=== PATIENT | male | born 1960 | race Caucasian/White ===

== ENCOUNTER 2023-12-21 15:03 | Emergency (ER) | payer BC, SELFPAY ==
--- NOTE | ~2023-12-21 | XR_ITS ---
EXAMINATION: XR LUMBOSACRAL SPINE CLINICAL INFORMATION: Fall off a ladder approximately 4 feet high COMPARISON: None available. TECHNIQUE: Three views of the lumbosacral spine. FINDINGS: The vertebral bodies and posterior elements are normal. The disc spaces are preserved and the vertebral alignment is normal. The paraspinal soft tissues are normal. XR/XR lumbar spine 2-3V IMPRESSION: Unremarkable lumbar spine examination. Electronically signed by: Cody Sun MD 12/21/2023 07:45 PM EDT
--- NOTE | ~2023-12-21 | XR_ITS ---
EXAMINATION: XR ANKLE AND FOOT, LEFT CLINICAL INFORMATION: Fell off 4 from ladder today and landed on foot with swelling laterally COMPARISON: None available. TECHNIQUE: AP, lateral, and mortise views of the left ankle. 3 views of the left foot. FINDINGS: There is marked bilateral soft tissue swelling. The ankle mortise appears stable. There is a comminuted fracture extending through the body of the calcaneus with minimal displacement of fracture fragments. No other definite fractures are seen. An ankle joint effusion is not present. XR/XR ankle LT min 3V IMPRESSION: Comminuted calcaneal fracture. Electronically signed by: Clem Bennett MD 12/21/2023 05:33 PM EDT RP
--- NOTE | ~2023-12-21 | XR_ITS ---
EXAMINATION: XR ANKLE AND FOOT, LEFT CLINICAL INFORMATION: Fell off 4 from ladder today and landed on foot with swelling laterally COMPARISON: None available. TECHNIQUE: AP, lateral, and mortise views of the left ankle. 3 views of the left foot. FINDINGS: There is marked bilateral soft tissue swelling. The ankle mortise appears stable. There is a comminuted fracture extending through the body of the calcaneus with minimal displacement of fracture fragments. No other definite fractures are seen. An ankle joint effusion is not present. XR/XR foot LT min 3V IMPRESSION: Comminuted calcaneal fracture. Electronically signed by: Clem Bennett MD 12/21/2023 05:33 PM EDT RP
--- NOTE | 2023-12-21 15:24 | ED.LOWEXIN ---
HPI - Extremity Injury (Lower) General Chief Complaint: Extremity Injury, Lower Stated Complaint: l ankle inj Time Seen by Provider: 12/21/23 16:39 Source: patient Mode of arrival: ambulatory Limitations: no limitations History of Present Illness ED Provider: JUNIOR SCOTT PA-C HPI Narrative: 63 year old male with no significant pmhx presents tot he ED today for evaluation of left foot/ankle pain after losing his balance and falling approximately 4-5 feet off of the ladder, landing on his left heel NUCLEAR MEDICAL TECH. He has been unable to bear weight since. He denies head strike or LOC. Denies neck or back pain, hip pain, or knee pain. Denies numbness/tingling/weakness of the LLE. Reports taking 3 Tylenol NUCLEAR MEDICAL TECH with minimal improvement in pain. Related Data Previous Rx's ?Medication ?Instructions ?Recorded oxycodone 5 mg tablet 5 mg PO Q8H PRN pain (scale score 12/21/23 4-6) #10 tabs prednisone 20 mg tablet 40 mg (2 x 20 mg) PO DAILY 5 days 12/21/23 #10 tabs Allergies Allergy/AdvReac Type Severity Reaction Status Date / Time No Known Allergies Allergy Verified 12/21/23 15:26 Review of Systems Review of Systems: Constitutional: No fever, chills, fatigue, night sweats, weight changes ENT/Mouth: No ear pain, hearing loss, nasal congestion, sinus pain, rhinorrhea, sore throat Eyes: No eye pain, swelling, redness, vision changes, discharge Cardio: No chest pain, palpitations, AVALOS, orthopnea, peripheral edema Pulm: No SOB, cough, sputum, wheezing, dyspnea, hemoptysis GI: No nausea, vomiting, hematemesis, abdominal pain, diarrhea, constipation, hematochezia, melena : No irregular bleeding, dysuria, frequency, urgency, hesitancy, hematuria, flank pain, urinary flow changes, urinary incontinence or retention MSK: No back pain, neck pain, joint pain, myalgias, +left ankle/foot pain Skin: No lesions, rashes Neuro: No weakness, numbness, paresthesias, LOC, dizziness, headache Psych: No anxiety/panic, depression, SI/HI, AH/VH All other systems reviewed and are negative. [facility] Past Medical History Attestation statement: The following information was validated with the patient. Source: old records reviewed and nursing notes reviewed Social History Social History Advance Directives: No Advance Directives Information Provided: No Do you have a plan to hurt others: No Plan Physical Exam Vital Signs: Vital Signs: Last Vital Signs Temp 98.4 F 12/21/23 15:26 Pulse 84 12/21/23 15:26 Resp 16 12/21/23 15:26 BP 155/94 H 12/21/23 15:26 Pulse Ox 99 12/21/23 15:26 O2 Del Method Room Air 12/21/23 15:26 BMI result Body Mass Index 25.8 patient hypertensive, vitals otherwise wnl General: Well appearing, in no acute distress. Skin: Warm, dry, intact. No rashes or lesions. Head: Normocephalic, atraumatic. EENT: Hearing is intact b/l. Conjunctiva clear. PERRLA. EOM intact. Moist mucous membranes.? Neck: Supple without LAD Cardiac: Chest wall symmetric. RRR. Lungs: Normal respiratory effort without accessory muscle use. Back: No midline spinous or paraspinal tenderness. No step off deformity. Ext: +diffuse swelling noted to left ankle. limited ROM d/t swelling/ pain. cap refil 3 seconds. 2+ PT pulse. unable to bear weight on left foot. diffusely ttp. no deformity, skin changes or tenderness noted to left knee or hip. FROM intact to both. Neuro: AOx3. Normal speech. Strength 5/5 intact throughout. No saddle anesthesia. Sensation intact to light touch. NV intact distally. Psych: Appropriate mood and affect. Responds appropriately to questions. Course Course Course Narrative: This is a Rapid Medical Examination (RME) performed by Shania Vitale PA-C in triage. Full HPI, ROS, assessment and treatment plan per primary provider in the Main ED. 63 y/o male with history of HTN presents the ER for evaluation of left ankle pain after he fell 4 ft off of a ladder about an hour ago. He denies any head strike or loss of conscious. He is not on anticoagulation. He states having a ladder, both fell over, landing on his left foot. Unable to bear weight since. Significant swelling on exam, 1+ PD pulse. Plan: X-rays of the left ankle and foot Reevaluation(s) Reevaluation #1: 1820 -- X-ray left foot/ankle shows marked bilateral soft tissue swelling with comminuted fracture extending through the body of the calcaneus with minimal displacement of fracture fragments. No evidence of other fracture. I spoke with orthopedic PAManolo, who recommends posterior short-leg, nonweightbearing and crutches with close outpatient follow-up. Patient placed in posterior short-leg splint. Tolerated well. Cap refill 3 seconds post placement. sensation intact. he states the splint feels comfortable. he was medicated with IV Dilaudid in ED with improvement in pain. Advised to take Tylenol and Motrin at home. Will send oxycodone for breakthrough pain. Will also send prednisone for swelling. educated on RICE therapy. referral to ortho provided. 1844 -- Patient stating he would like to leave without obtaining his lumbar xray results. He does not wish to stay here and would like to go home. Given absence of midline spinous tenderness or step off deformity, I have low suspicion of lumbar fracture or other pathology. i informed that he would be leaving AMA without his xray results and he expresses understanding and is agreeable to signing AMA forms. Patient has remained stable throughout ED visit today. Discussed worrisome signs and symptoms and when to return to the ED. All questions answered at this time. his friend will be driving him home today. Medications Administered Discontinued Medications Generic Name Dose Route Start Last Admin Trade Name Freq PRN Reason Stop Dose Admin Hydromorphone HCl 0.5 mg 12/21/23 17:00 12/21/23 17:08 Hydromorphone Hcl 0.5 Mg/0.5 Ml Syringe IVPUSH 12/21/23 17:01 0.5 mg ONCE ONE Administration Protocol Medical Decision Making Medical Decision Making MDM Narrative: 63 year old male with no significant pmhx presents tot he ED today for evaluation of left foot/ankle pain after losing his balance and falling approximately 4-5 feet off of the ladder, landing on his left heel NUCLEAR MEDICAL TECH. Patient hypertensive, vitals otherwise WNL. He is nontoxic-appearing and in no acute distress. On exam of left foot/ankle, there is diffuse swelling noted to left ankle. limited ROM d/t swelling/ pain. cap refil 3 seconds. 2+ PT pulse. unable to bear weight on left foot. diffusely ttp. no deformity, skin changes or tenderness noted to left knee or hip. FROM intact to both. Strength 5/5 intact throughout. No saddle anesthesia. Sensation intact to light touch. NV intact distally. No midline spinous tenderness or step-off deformity. Differential diagnosis includes fracture, dislocation, contusion. Physical exam is not consistent with tibial plateau fracture or other knee fracture. There is no midline spinous tenderness to suggest vertebral fracture however will obtain lumbar x-ray to rule out. Unlikely neurovascular compromise, threat to limb, compartment syndrome, cord compression, cauda equina. Plan for xrays, pain control, re-evaluation. Differential Diagnosis Differential Diagnoses: The differential diagnosis associated with the presentation includes as above. Admission/Observation not indicated. Consult Healthcare Provider Management of the patient was discussed with: Band Top Maker (Ortho [facility] Lozano ) Independent Interpretation I performed an independent interpretation of an: Plain X-Ray Interpretation: XR left foot/ ankle showing calcaneal fracture, agree with radiologist's interpretation. XR lumbar spine Radiology Impression Discussion of test interpretation with radiology: I have reviewed the radiologist's reading. Radiologist Impression: EXAMINATION: XR ANKLE AND FOOT, LEFT CLINICAL INFORMATION: Fell off 4 from ladder today and landed on foot with swelling laterally COMPARISON: None available. TECHNIQUE: AP, lateral, and mortise views of the left ankle. 3 views of the left foot. FINDINGS: There is marked bilateral soft tissue swelling. The ankle mortise appears stable. There is a comminuted fracture extending through the body of the calcaneus with minimal displacement of fracture fragments. No other definite fractures are seen. An ankle joint effusion is not present. XR/XR foot LT min 3V IMPRESSION: Comminuted calcaneal fracture. Electronically signed by: Clem Bennett MD 12/21/2023 05:33 PM EDT RP Prescription Management I considered prescription management with: Pain Medication (Oxycodone) Social Determinants Patient?s care significantly limited by Social Determinants of Health including: Other Social Determinant of Health Procedures Orthopedic Splinting/Casting Injury #1: Side: left Lower Extremity Injury Location: ankle and foot Lower Extremity Immobilizer: posterior splint Other Orthopedic Equipment: crutches Critical Care Time Critical Care Time Critical Care Time: No Discharge Plan Discharge Clinical Impression: Calcaneal fracture Patient Disposition: Left Against Medical Advice Instructions: Crutch Instructions (ED), Calcaneal Fracture (ED) Additional Instructions: You have been evaluated in the Emergency Department today for ankle/foot pain. Your evaluation showed a fracture of your heel (calcaneus). I have placed your ankle/foot in a splint today. Avoid getting the splint wet. Keep the splint intact until you follow up with orthopedics outpatient. We have provided crutches for you to use while your ankle heals. Do not bear weight on your left foot. Please rest, ice, and elevate your ankle. I recommend you take 600mg ibuprofen every 6 hours or Tylenol 650 mg every 6 hours as needed for pain. If needed, you can alternate these medications so that you take one medication every 3 hours. For example, at noon take ibuprofen, then at 3pm take Tylenol, then at 6pm take ibuprofen.? Please take Oxycodone as directed as necessary for breakthrough pain. Prednisone is a steroid that has been sent to your pharamcy for you to take over the next 5 days for swelling. Please follow-up with an orthopedic surgeon. You have been provided with a referral. Call them tomorrow to make an appointment, they will not call you. Return to the Emergency Department if you experience worsening pain, numbness, tingling, change of color in your toes, or any other concerning symptoms. You are choosing to leave the ED without the official read for your lumbar xray. Please return to the ED if you begin to have back pain, numbness/tingling/weakness of your lower extremities or bowel/ bladder incontinence or retention. Prescriptions: New oxycodone 5 mg tablet 5 mg PO Q8H PRN (Reason: pain (scale score 4-6)) Qty: 10 0RF Rx Instructions: Partial Fill upon patient request. prednisone 20 mg tablet 40 mg PO DAILY 5 Days Qty: 10 0RF Referrals: [facility] [place] [facility] [Provider Group] - 2 days (Left calcaneal fracture) Tammy Pires CNP [Primary Care Provider] - Stand Alone Forms: Against Medical Advice Print Language: Romanian
[2023-12-21 15:26] VITALS: BP 155/94; PULSE 84; RESP 16; TEMP 36.9; O2SAT 99; BMI 25.8
[2023-12-21] MEDS: HYDROmorphone HCl 0.5 MG/0.5 ML SYRINGE IVPUSH (17:08)
--- NOTE | 2023-12-21 18:44 | PC.NURSE ---
PT wants to leave AMA. PT made aware of the risks leaving AMA. Pt verbalizes understanding of risks, and still request to leave. Provider aware.
--- NOTE | 2023-12-21 18:50 | PC.NURSE ---
PT verbalizes understanding of discharge insturictions and aware that lumbar spine x-ray isn't back yet. PT signed AMA form Provider as second witness.
[2023-12-21 18:59] VITALS: BP 155/94; PULSE 84; RESP 16; TEMP 36.9; O2SAT 99
== END 2023-12-21 19:00 | disposition left against medical advice (07) ==
PROVIDERS: Emergency Provider Internal Medicine; PCP Nurse Practitioner Primary Care
DX: S92.002A Unspecified fracture of left calcaneus, initial encounter for closed fracture (principal); M54.50 Low back pain, unspecified; M25.572 Pain in left ankle and joints of left foot; X58.XXXA Exposure to other specified factors, initial encounter; Y93.89 Activity, other specified; Y92.89 Other specified places as the place of occurrence of the external cause; Y99.8 Other external cause status
CPT/HCPCS: 29515; 72100; 73610; 73630; 96374; 99283; 99284; J1171

== ENCOUNTER 2023-12-25 12:08 | Outpatient (AMB) | payer BC, SELFPAY ==
--- NOTE | 2023-12-25 12:38 | MHC.OFFVIS ---
Intake Visit Reasons: FC - left calcaneal fx, DOI 12/21/23 Intake Note: Ayo is a 63 year old male who presents today for a evaluation of his left ankle fx, DOI 12/21/23. Patient reports after losing his balance and falling approximately 4-5 feet off of the ladder, landing on his left heel. He states he if feeling better, deniese numbness and tingling. Accompanied by: Sister Allergies No Known Allergies Allergy (Verified 12/25/23 12:41) HPI HPI FC - left calcaneal fx, DOI 12/21/23: Details: 63-year-old male who presents in the office today, as a new patient, for an evaluation of left calcaneal fracture. The patient presented to the ED on 12/21/23 status post a fall. He fell off a ladder from a height of approximately 4-5 feet and landed on his left heel. X-rays of the left ankle and foot were obtained. He was placed in a posterior short-leg splint and was provided with crutches. He was recommended non-weight bearing on his left foot and to utilize RICE therapy. He was prescribed oxycodone 5 mg PO Q8H PRN for pain and prednisone 20 mg 2 tablets PO daily for 5 days to aid with edema. He was advised to take OTC Tylenol 650 mg Q6H or OTC ibuprofen 600 mg Q6H PRN or can alternate between the medications Q3H for pain relief. While in the office today, the patient confirms his left calcaneal fracture that occurred due to a fall from a ladder. He reports he is doing better with respect to his pain. He denies experiencing any numbness or tingling sensation. [facility] Social History (Updated 12/25/23 @ 12:42 by Joseph Lamar) Alcohol intake: current Alcohol intake frequency: holidays/special occasions only Patient Tobacco Use Status: Never used Tobacco Current occupational status: retired Review of Systems Const All systems reviewed & are unremarkable except as noted in HPI and below Physical Exam Const General: cooperative and no acute distress Orientation/consciousness: patient oriented x3 Resp Effort & Inspection: normal respiratory effort and able to speak in complete sentences Cardio Peripheral pulses: Peripheral pulses 2+ throughout Skin General skin exam: no rashes or lesions noted Neuro General: patient oriented x3 Extrem Other: Left foot: Moderate edema. She has a half dollar size area of a fracture blister on the medial aspect of the calcaneus. Sensation intact. Pedal pulse intact. Office Procedures AMB Fracture Care Fracture Billing Code: Fracture Billing Code Casting/Splints 51187-[id number] Leg splint application Procedure code (CPT) selection complete Assessment & Plan Assessment & Plan (1) Left calcaneal fracture: Code(s): S92.002A - Unspecified fracture of left calcaneus, initial encounter for closed fracture Category: Medical Plan Mr. Tran is a 63-year-old male who presents in the office today, as a new patient, for an evaluation of left calcaneal fracture. The patient presented to the ED on 12/21/23 status post a fall. He fell off a ladder from a height of approximately 4-5 feet and landed on his left heel. X-rays of the left ankle and foot were obtained. He was placed in a posterior short-leg splint and was provided with crutches. He was recommended non-weight bearing on his left foot and to utilize RICE therapy. He was prescribed Oxycodone 5 mg PO Q8H PRN for pain and prednisone 20 mg 2 tablets PO daily for 5 days to aid with edema. He was advised to take OTC Tylenol 650 mg Q6H or OTC ibuprofen 600 mg Q6H PRN or can alternate between the medications Q3H for pain relief. While in the office today, the patient confirms his left calcaneal fracture that occurred due to a fall from a ladder. He reports he is doing better with respect to his pain. He denies experiencing any numbness or tingling sensation. The patient was placed in a posterior short leg splint, custome made. He will remain non-weight bearing. I have placed an order for a STAT CT scan to further evaluate the extent of the calcaneal fracture and possibility of intra-articular involvement. He will contact the office once the CT scan is obtained. We will discuss the results and further plan via telephone. Follow-up will be after the CT scan is obtained, or sooner if needed. X-rays of the left foot and ankle, obtained on 12/21/23, revealed: Comminuted calcaneal fracture. Orders: Orders CT foot LT wo IV con Today S92.009A - Unspecified fracture of unspecified calcaneus, initial encounter for closed fracture Medications: Discontinued prednisone Discontinued Reason: Patient Completed Course 40 mg (2 x 20 mg) PO DAILY 5 days 10 tabs 0RF Patient Instructions: Scribed by [facility] medical staff physician, for aKrlee Baird PA-C on 12/25/23 at 12:43 pm EST. Coding Level of Care Code New Pt Level 4 (68295) Diagnoses Left calcaneal fracture S92.002A CPT Codes Fracture Care - Fracture Billing Code: Fracture Billing Code ([id number]) Splint - CPT: 11665-Scdfl Leg splint application ([id number])
== END 2023-12-25 14:01 | disposition home or self-care (01) ==
PROVIDERS: PCP Nurse Practitioner Primary Care; Visit Provider Physician Assistant
DX: S92.002A Unspecified fracture of left calcaneus, initial encounter for closed fracture (principal); W11.XXXA Fall on and from ladder, initial encounter
CPT/HCPCS: 28400; 99204

== ENCOUNTER → 2023-12-25 12:08 | Outpatient (BNVA) | payer BC, SELFPAY | PROVIDERS: PCP Nurse Practitioner Primary Care; Visit Provider Physician Assistant | DX: S92.002A Unspecified fracture of left calcaneus, initial encounter for closed fracture (principal) | CPT/HCPCS: 28400 ==

== ENCOUNTER 2023-12-27 14:10 | Outpatient (REF) | payer BC, SELFPAY ==
--- NOTE | ~2023-12-27 | CT_ITS ---
EXAMINATION: CT FOOT WITHOUT CONTRAST, LEFT CLINICAL INFORMATION: Calcaneus fracture COMPARISON: Radiographs 12/11/2023 TECHNIQUE: A noncontrast CT of the left foot is performed with sagittal and coronal reformats This CT examination was performed using dose optimization techniques as appropriate, variously including the following: *Automated exposure control *Adjustment of mA and/or kV according to patient size (this includes techniques or standardized protocols for targeted exams where dose is matched to indication/reason for exam; i.e. extremities or head) *Use of iterative reconstruction technique Dose Length Product: 163 mGycm. FINDINGS: There is a comminuted fracture throughout the calcaneus with mild medial to lateral widening. A fracture line extends obliquely along the posterior subtalar facet joint as well as the anterior subtalar facet joint. A nondisplaced fracture extends along the base of the sustentaculum talus. Longitudinal fracture extends along the lateral aspect of the calcaneocuboid joint. Posteriorly, a transverse fracture extends along the insertion of the Achilles tendon. A separate oblique fracture extends along the base of the medial process. No fracture of the talus, cuboid, or navicular. CT/CT foot LT wo IV con IMPRESSION: Comminuted calcaneal fracture as detailed in the comments. Electronically signed by: Javed Hannah MD 12/27/2023 04:22 PM EDT
== END 2023-12-27 14:11 | disposition home or self-care (01) ==
LOC: HO.CT 14:10
PROVIDERS: PCP Nurse Practitioner Primary Care; Visit Provider Physician Assistant
DX: S92.002A Unspecified fracture of left calcaneus, initial encounter for closed fracture (principal)
CPT/HCPCS: 73700

== ENCOUNTER 2024-01-04 13:45 | Outpatient (AMB) | payer BC, SELFPAY ==
--- NOTE | 2024-01-04 14:05 | MHC.OFFVIS ---
Intake Visit Reasons: OV - Left calcaneal fx, DOI 12/21/23 Intake Note: Ayo is a 63 year old male who presents today for a evaluation of his left ankle fx, DOI 12/21/23. Patient reports he is doing well, no pain at the moment. He would like to see his CT scan, if possible. Allergies No Known Allergies Allergy (Verified 12/25/23 12:41) HPI HPI OV - Left calcaneal fx, DOI 12/21/23: Details: 63-year-old male who presents in the office today for a follow-up of left calcaneal fracture status post fell off a ladder from a height of approximately 4-5 feet and landed on his left heel. I last saw the patient in the office on 12/25/2023 when he was placed in a posterior short leg splint and advised to remain non-weight bearing. An order for STAT CT scan was placed to further evaluate the extent of the calcaneal fracture and possibility of intra-articular involvement. While in the office today, the patient reports he is doing well with currently having no pain in the left foot. [facility] Social History (Updated 12/25/23 @ 12:42 by Joseph Lamar) Alcohol intake: current Alcohol intake frequency: holidays/special occasions only Patient Tobacco Use Status: Never used Tobacco Current occupational status: retired Review of Systems Const All systems reviewed & are unremarkable except as noted in HPI and below Physical Exam Const General: cooperative, healthy appearing and no acute distress Orientation/consciousness: patient oriented x3 Resp Effort & Inspection: normal respiratory effort and able to speak in complete sentences Cardio Rate: regular rate Peripheral pulses: Peripheral pulses 2+ throughout GI Palpation (GI): Soft to palpation Skin General skin exam: no rashes or lesions noted Lesions: no lesions Rashes: no rashes Neuro General: patient oriented x3 Extrem Other: Left foot: Mild to moderate edema. She has a half dollar size area of a fracture blister on the medial aspect of the calcaneus remains with no signs of infection. Sensation intact. Pedal pulse intact. Office Procedures AMB Fracture Care Fracture Billing Code: Fracture Billing Code Casting/Splints [id number] Leg Cast Application Procedure code (CPT) selection complete Assessment & Plan Assessment & Plan (1) Left calcaneal fracture: Code(s): S92.002A - Unspecified fracture of left calcaneus, initial encounter for closed fracture Category: Medical Plan Mr. Tran is a 63-year-old male who presents in the office today for a follow-up of left calcaneal fracture status post fell off a ladder from a height of approximately 4-5 feet and landed on his left heel. I last saw the patient in the office on 12/25/2023 when he was placed in a posterior short leg splint and advised to remain non-weight bearing. An order for STAT CT scan was placed to further evaluate the extent of the calcaneal fracture and possibility of intra-articular involvement. While in the office today, the patient reports he is doing well with currently having no pain in the left foot. The CT scan was reviewed by Dr. Sequeira, who was available to speak with me but unable to see the patient, and a collaborative treatment plan was made recommending non-operative treatment. The patient is placed into a short leg cast, custom made. He will remain non-weight bearing. I would like the patient to follow up in 4 week for x-rays, cast removal and anticipate progression into a tall walking boot. Follow-up will be in 4 weeks with x-rays, cast off, or sooner if needed. CT scan of the left foot, obtained on 12/27/2023 ,revealed: There is a comminuted fracture throughout the calcaneus with mild medial to lateral widening. A fracture line extends obliquely along the posterior subtalar facet joint as well as the anterior subtalar facet joint. A nondisplaced fracture extends along the base of the sustentaculum talus. Longitudinal fracture extends along the lateral aspect of the calcaneocuboid joint. Posteriorly, a transverse fracture extends along the insertion of the Achilles tendon. A separate oblique fracture extends along the base of the medial process. No fracture of the talus, cuboid, or navicular. Patient Instructions: Scribed by [employer] faculty i on call medical assistant, for Karlee Baird PA-C on 01/04/24 at 2:20 pm EST. Coding Level of Care Code Est Pt Level 4 (75137) Diagnoses Left calcaneal fracture S92.002A CPT Codes Casting - CPT: 23673-Yyimg Leg Cast Application ([id number]) Fracture Care - Fracture Billing Code: Fracture Billing Code ([id number])
== END 2024-01-04 14:50 | disposition home or self-care (01) ==
LOC: HO.HOS 13:45
PROVIDERS: PCP Nurse Practitioner Primary Care; Visit Provider Physician Assistant
DX: S92.002A Unspecified fracture of left calcaneus, initial encounter for closed fracture (principal)
CPT/HCPCS: 29405; 99024

== ENCOUNTER → 2024-01-04 13:45 | Outpatient (BNVA) | payer BC, SELFPAY | PROVIDERS: PCP Nurse Practitioner Primary Care; Visit Provider Physician Assistant | DX: S92.002D Unspecified fracture of left calcaneus, subsequent encounter for fracture with routine healing (principal) | CPT/HCPCS: 29405 ==

== ENCOUNTER 2024-01-23 09:14 | Outpatient (REF) | payer BC, SELFPAY | END 2024-01-23 09:15 | disposition home or self-care (01) | LOC: HO.HOSX 09:14 | PROVIDERS: Visit Provider Physician Assistant | DX: Z13.89 Encounter for screening for other disorder (principal) ==

== ENCOUNTER 2024-01-25 09:32 | Outpatient (REF) | payer BC, SELFPAY ==
--- NOTE | ~2024-01-25 | XR_ITS ---
EXAMINATION: XR FOOT, LEFT CLINICAL INFORMATION: M79.673 - Pain in unspecified foot COMPARISON: Left foot series 12/21/2023 CT scan left foot 12/27/2023 TECHNIQUE: AP, lateral, and oblique views of the left foot. FINDINGS: Redemonstration of the joint depression type calcaneus fracture fracture lines are slightly less conspicuous suggesting at least partial osseous bridging question slight increased of joint depression compared to prior. This could be due to slight differences in projection. Mild generalized soft tissue swelling. XR/XR foot LT min 3V IMPRESSION: Joint depression type calcaneus fracture. Question slight increase in joint depression compared to prior. This could be artifactual related slight differences in projection Electronically signed by: Hugo Liu MD 01/31/2024 10:52 AM ILEANA
== END 2024-01-25 09:33 | disposition home or self-care (01) ==
LOC: HO.HOSX 09:32
PROVIDERS: PCP Nurse Practitioner Primary Care; Visit Provider Physician Assistant
DX: M79.673 Pain in unspecified foot (principal)
CPT/HCPCS: 73630

== ENCOUNTER 2024-01-25 09:32 | Outpatient (AMB) | payer BC, SELFPAY ==
--- NOTE | 2024-01-25 09:57 | A.OFFVIS_ITS ---
Intake Visit Reasons: OV - Left calcaneal fx, DOI 12/21/23 Intake Note: Ayo is a 63 year old male who presents today for a follow up of his left ankle fx, DOI 12/21/23. Patient reports he is having little to no pain today in the office after getting his cast removed. He did notice some redness in between is left ring and pinky toe. Allergies No Known Allergies Allergy (Verified 01/25/24 09:59) HPI HPI OV - Left calcaneal fx, DOI 12/21/23: Details: 63-year-old male who presents in the office today for a follow-up of left calcaneal fracture status post a fall off a ladder from a height of approximately 4-5 feet and landed on his left heel. I last saw the patient in the office on 01/04/24 when the patient was placed into a short leg cast and recommended to remain non-weight bearing. His CT scan was reviewed by me and Dr. Sequeira in that encounter. While in the office today, the patient reports experiencing mild to no pain after removing the cast off in the office today. He mentions that he noticed mild erythema in between his left fourth and fifth toe. [facility] Social History (Updated 12/25/23 @ 12:42 by Joseph Lamar) Alcohol intake: current Alcohol intake frequency: holidays/special occasions only Patient Tobacco Use Status: Never used Tobacco Current occupational status: retired Review of Systems Const All systems reviewed & are unremarkable except as noted in HPI and below Physical Exam Const General: cooperative, healthy appearing and no acute distress Resp Effort & Inspection: normal respiratory effort and able to speak in complete sentences Cardio Rate: regular rate Peripheral pulses: Peripheral pulses 2+ throughout GI Palpation (GI): Soft to palpation Skin Lesions: no lesions Rashes: no rashes Extrem Other: Left foot and ankle: Moderate circumferential edema throughout the left foot. No tenderness to palpation overall anatomical landmarks of the ankle. No pain with applying pressure to the calcaneus with applying pressure while palpating the calcaneus. He is able to perform dorsiflexion, plantar flexion, pronation, supination; however, is significantly limited due to stiffness. His sensation is intact and pedal pulse is intact. Assessment & Plan Assessment & Plan (1) Left calcaneal fracture: Code(s): S92.002A - Unspecified fracture of left calcaneus, initial encounter for closed fracture Category: Medical Plan Mr. Rollins is a 63-year-old male who presents in the office today for a follow- up of left calcaneal fracture status post a fall off a ladder from a height of approximately 4-5 feet and landed on his left heel. I last saw the patient in the office on 01/04/24 when the patient was placed into a short leg cast and recommended to remain non-weight bearing. His CT scan was reviewed by me and Dr. Sequeira in that encounter. While in the office today, the patient reports experiencing mild to no pain after removing the cast off in the office today. He mentions that he noticed mild erythema in between his left fourth and fifth toe. The patient was transitioned to a tall walking boot, off the shelf. He will remain non-weight bearing for an additional week as previously discussed with Dr. Sequeira. He may begin to weight bear as tolerated after a week using pain as his guide. He should begin with partial weight bearing with crutches and then progress as appropriate. I have also placed a referral to physical therapy to assist with this. Follow-up will be 6 weeks, or sooner if needed. X-rays of the left foot, which were obtained while in the office today and were reviewed by me, Karlee Baird PA-C, revealed: Routine healing of the calcaneal fracture. Orders: Orders XR foot LT min 3V 01/25/24 M79.673 - Pain in unspecified foot PT Evaluation and Treatment 01/25/24 S92.002A - Unspecified fracture of left calcaneus, initial encounter for closed fracture Patient Instructions: Scribed by [facility] [employer] medical facilities section director, for Karlee Baird PA-C on 01/25/24 at 10:15 am EST. Coding Level of Care Code Global (06493) Diagnoses Left calcaneal fracture S92.002A
== END 2024-01-25 10:18 | disposition home or self-care (01) ==
PROVIDERS: PCP Nurse Practitioner Primary Care; Visit Provider Physician Assistant
DX: S92.002A Unspecified fracture of left calcaneus, initial encounter for closed fracture (principal)
CPT/HCPCS: 99024

== ENCOUNTER 2024-03-01 10:22 | Outpatient (REF) | payer BC, SELFPAY ==
--- NOTE | ~2024-03-01 | XR_ITS ---
CLINICAL HISTORY: M79.673 - Pain in unspecified foot Three views of the left foot. COMPARISON: None FINDINGS: Osteopenia. No ankle joint effusion. Normal tarsometatarsal alignment. Question erosion present along the inferior aspect of the calcaneus and cuboid seen on lateral imaging. Metatarsals appear intact. Degenerative changes of the 1st MTP joint with joint space narrowing. Phalanges appear intact. IMPRESSION: 1. Question erosions along the plantar aspect of the distal calcaneus and cuboid seen on lateral imaging. This may be artifactual secondary to marked osteopenia. Recommend correlation with clinical history and prior imaging if available. 2. Osteopenia. 3. 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 This document has been electronically signed by: Musa Hallman MD on 03/04/2024 21:12:11
== END 2024-03-01 10:23 | disposition home or self-care (01) ==
LOC: HO.HOSX 10:22
PROVIDERS: Visit Provider Physician Assistant
DX: M79.673 Pain in unspecified foot (principal)
CPT/HCPCS: 73630

== ENCOUNTER 2024-03-01 12:51 | Outpatient (AMB) | payer BC, SELFPAY ==
--- NOTE | 2024-03-01 13:00 | A.OFFVIS_ITS ---
Vital Signs 03/01/24 13:01 Height 5 ft 10 in Weight 180 lb BMI 25.8 Intake Visit Reasons: OV - Left calcaneal fx,- w/Xray Intake Note: Ayo is a 63 year old male who presents today for a follow up of his left ankle fx, DOI 12/21/23. Patient reports he is having little pain especially after P.T . States he continues to wear his cam walker boot and comes out of it to work on his ROM. Allergies No Known Allergies Allergy (Verified 03/01/24 13:03) HPI HPI OV - Left calcaneal fx,- w/Xray: Details: 63-year-old male who presents in the office today for a follow-up of left calcaneal fracture status post a fall off a ladder from a height of approximately 4-5 feet and landed on his left heel. I last saw the patient in the office on 01/25/24, when he was transitioned into a tall walking boot. He was recommended to remain non-weight bearing for an additional week and then can start weight bearing as tolerated using pain as his guide. A referral was placed to physical therapy to assist with partial weight bearing with crutches and then progress as appropriate. While in the office today, the patient reports experiencing mild pain that is prevalent after his physical therapy. He continues to wear the tall walking boot and comes out of it at home to work on his range of motion.? [facility] Social History Alcohol intake: current Alcohol intake frequency: holidays/special occasions only Patient Tobacco Use Status: Never used Tobacco Current occupational status: retired Review of Systems Const All systems reviewed & are unremarkable except as noted in HPI and below Physical Exam Vital Signs: BMI result Body Mass Index 25.8 Const General: cooperative, healthy appearing and no acute distress Resp Effort & Inspection: normal respiratory effort and able to speak in complete sentences Cardio Rate: regular rate Peripheral pulses: Peripheral pulses 2+ throughout GI Palpation (GI): Soft to palpation Skin Lesions: no lesions Rashes: no rashes Extrem Other: Left foot and ankle: Moderate circumferential edema throughout the left foot. No tenderness to palpation overall anatomical landmarks of the ankle. No pain while palpating the calcaneus. He is able to perform dorsiflexion, plantar flexion, pronation, supination. ROM has significantly improved since last visit. He reports some increased pain over the medial ankle where there was a previous fracture blister. Reports some burning sensation in this area. NVI. Assessment & Plan Assessment & Plan (1) Left calcaneal fracture: Code(s): S92.002A - Unspecified fracture of left calcaneus, initial encounter for closed fracture Category: Medical Plan Mr. Tran is a 63-year-old male who presents in the office today for a follow-up of left calcaneal fracture status post a fall off a ladder from a height of approximately 4-5 feet and landed on his left heel. I last saw the patient in the office on 01/25/24, when he was transitioned into a tall walking boot. He was recommended to remain non-weight bearing for an additional week and then can start weight bearing as tolerated using pain as his guide. A referral was placed to physical therapy to assist with partial weight bearing with crutches and then progress as appropriate. While in the office today, the patient reports experiencing mild pain that is prevalent after his physical therapy. He continues to wear the tall walking boot and comes out of it at home to work on his range of motion. The patient will continue to wear the boot with the goal of weaning him out of the boot with physical therapy. The first goal with PT should be to perform weight bearing exercises without pain. He can then gradually wean out of the boot over one to two weeks. He will follow-up in 6 weeks with anticipation that he will be weaned out of the boot at that time. Follow-up will be in 6 weeks, or sooner if needed. X-rays of the left foot, which were obtained while in the office today and were reviewed by me, Karlee Baird PA-C, revealed: Routine healing of left calcanea l fracture. Orders: Orders XR foot LT min 3V Today M79.673 - Pain in unspecified foot Patient Instructions: Scribed by [facility] medical technologist chief, for Karlee Baird PA-C on 03/01/24 at 01:20 pm EST. Coding Level of Care Code Global (52592) Diagnoses Left calcaneal fracture S92.002A
[2024-03-01 13:01] VITALS: BMI 25.8
== END 2024-03-01 13:23 | disposition home or self-care (01) ==
PROVIDERS: PCP Nurse Practitioner Primary Care; Visit Provider Physician Assistant
DX: S92.002A Unspecified fracture of left calcaneus, initial encounter for closed fracture (principal)
CPT/HCPCS: 99024

== ENCOUNTER 2024-03-08 10:00 | Outpatient (RCR) | payer BC, SELFPAY ==
--- NOTE | 2024-02-21 10:46 | MHC.PT.EP ---
[facility] [place] Office [place] Office [place] Office [address] [phone] F: [phone] F: [phone] F: [phone] F: [phone] Physical Therapy Plan of Care Date of Evaluation: 02/21/24 Date of Surgery: Diagnosis: calcaneal fracture Assessment: Patient is a 63 year old R handed male who presents with s/s consistent with L calcaneal fracture, L foot pain. He is retired but enjoys being active, working on his cabin, and hiking. Patient past medical history is unremarkable. Current impairments include pain, balance, ROM, strength, activity tolerance and functional mobility. Functional limitations include decreased ability to stand, walk and perform all standing/weight bearing activities. Patient is motivated with good rehab potential. Skilled PT will address impairments and functional limitations in order to achieve goals. Frequency and Duration: The patient will be seen 2x/week for 5 weeks Short Term Goals: I with HEP - 2 weeks AROM WNL and pain free - 3 weeks Amb with symmetrical gait pattern, no AD - 4 weeks Assisted Goals: Strength 4/5 grossly - 5 weeks Swelling absent, coloration normal - 5 weeks SLB > 10 seconds - 5 weeks LEFS 55/80 - 5 weeks Treatment Plan: Modalities to reduce pain, spasms and effusion. Manual therapy to restore motion and function. Therapeutic exercise to improve strength and flexibility. Neuromuscular re-education for posture and balance. Therapeutic activities to return to functional activities of daily living. Electronically signed by: Jose Vargas, PT Please sign and return to therapist. Thank you for your referral.
--- NOTE | 2024-04-17 13:53 | MHC.PT.DC ---
[facility] [place] Office [place] [facility] [place] Office [address] Jennifer Myles [address] [phone] F: [phone] F: [phone] F: [phone] F: [phone] Physical Therapy Discharge Report Diagnosis: calcaneal fracture Date of Surgery: Date of Evaluation: 02/21/24 Date of Discharge: 03/08/24 Treatments to Date: 3 Cancellations to Date: No Shows to Date: Discharge Status: Patient Elected to Stop Discharge Summary: 03/08/24: Patient with mild symptoms when performing the addition of heel slides today. His pain is located mainly at the transverse tarsal joint but does endorse some toe pain from his bunion as well. He reports fear of progression for weight bearing still however appears to be putting a little more weight that prior session. Continued previous PT's POC, ended with ice and elevation, no adverse reactions noted with treatment and no increase in pain was noted post tx. 03/01/24: significant edu given on weight bearing and progression. pt with increased pain with weight bearing so we discussed use of UE/crutches to off set but also importance of working on weight bearing ex daily. Patient is a 63 year old R handed male who presents with s/s consistent with L calcaneal fracture, L foot pain. He is retired but enjoys being active, working on his cabin, and hiking. Patient past medical history is unremarkable. Current impairments include pain, balance, ROM, strength, activity tolerance and functional mobility. Functional limitations include decreased ability to stand, walk and perform all standing/weight bearing activities. Patient is motivated with good rehab potential. Skilled PT will address impairments and functional limitations in order to achieve goals. Electronically signed by: Jose Vargas, PT Please sign and return to therapist. Thank you for your referral.
== END 2024-04-17 13:53 | disposition home or self-care (01) ==
LOC: HO.PTCHIC 10:00
PROVIDERS: PCP Nurse Practitioner Primary Care; Visit Provider Physician Assistant
DX: S92.002D Unspecified fracture of left calcaneus, subsequent encounter for fracture with routine healing (principal)
CPT/HCPCS: 97110; 97161; 97530